=== PATIENT | female | born 1970 | race Caucasian/White ===

== ENCOUNTER 2019-05-23 22:37 | Emergency (ER) | payer OTHER ==
[2019-05-23] MEDS ORDERED: Ondansetron 4 MG/2 ML SDV IVPUSH ONE (23:50)
--- NOTE | 2019-05-23 23:57 | EDM.PDOC ---
ED HPI GENERAL MEDICAL PROBLEM - General Chief Complaint: Abdominal Pain Stated Complaint: VOMITING/ABDOMINAL PAIN/UTIS Time Seen by Provider: 05/23/19 22:38 Source of Information: Reports: Patient History Limitations: Reports: No Limitations - History of Present Illness INITIAL COMMENTS - FREE TEXT/NARRATIVE: Is a 48-year-old female. She was seen at the walk-in clinic last week and diagnosed with urinary tract infection. She was therefore severe lower abdominal pain was found to have a 3.9 cm ovarian cyst on the right but her appendix was normal by CT scan. She's been on nitrofurantoin and finish the course on Sunday. Around 3 AM this morning sudden onset of severe lower abdominal pain going to both sides of her back. She's had no fever and chills. The pain is gotten worse and she comes to the ER. On the way to the ER she vomited 3 before arriving to the ER. She denies any symptoms of urinary tract infection since she stopped the antibiotics. She has had a mild cough but no significant congestion no wheezing. 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 Denies: Shortness of Breath, Wheezing Cardiovascular: Reports: No Symptoms Endocrine: Reports: No Symptoms GI/Abdominal: Reports: Abdominal Pain, Nausea, Vomiting. Denies: Constipation, Diarrhea : Denies: Dysuria, Frequency, Urgency Musculoskeletal: Reports: No Symptoms Skin: Reports: No Symptoms Neurological: Reports: No Symptoms Psychiatric: Reports: No Symptoms Hematologic/Lymphatic: Reports: No Symptoms ED EXAM, GI/ABD - Physical Exam Exam: See Below Exam Limited By: No Limitations General Appearance: Alert, WD/WN, No Apparent Distress Eyes: Bilateral: Normal Appearance Ears: Normal External Exam Nose: Normal Inspection Throat/Mouth: Normal Lips, Normal Voice, No Airway Compromise Head: Normocephalic Neck: Supple Respiratory/Chest: No Respiratory Distress, Lungs Clear, Normal Breath Sounds Cardiovascular: Regular Rate, Rhythm, No Murmur GI/Abdominal Exam: Soft, Other (She has lower abdominal tenderness on both sides and midline, there is no rebound however and no peritoneal signs noted) Back Exam: Full Range of Motion Extremities: Normal Inspection, Normal Range of Motion Neurological: Alert, Oriented Psychiatric: Normal Affect, Normal Mood Skin Exam: Warm, Dry Course - Vital Signs Last Recorded V/S: Last Vital Signs Temp 96.6 F 05/23/19 22:52 Pulse 63 05/23/19 22:52 Resp 20 05/23/19 22:52 BP 147/88 H 05/23/19 22:52 Pulse Ox 99 05/23/19 22:52 - Orders/Labs/Meds Orders: Active Orders 24 hr Category Date Time Status CULTURE BLOOD [BC] Stat Lab 05/24/19 00:34 Received CULTURE BLOOD [BC] Stat Lab 05/24/19 00:41 Received CULTURE URINE [RM] Stat Lab 05/24/19 01:25 Ordered Sodium Chloride 0.9% [Normal Saline] 1,000 ml Med 05/23/19 23:45 Active IV ASDIRECTED Blood Culture x2 Reflex Set [OM.PC] Stat Oth 05/24/19 00:15 Ordered Medication Orders Sodium Chloride (Normal Saline) 1,000 mls @ 1,000 mls/hr IV ASDIRECTED ALICE Last Admin: 05/24/19 01:48 Dose: 1,000 mls/hr Infusion: 05/24/19 01:28 Dose: 1,000 mls/hr Admin: 05/24/19 00:28 Dose: 1,000 mls/hr Labs: Laboratory Tests 05/23/19 05/24/19 05/24/19 Range/Units 23:04 00:34 00:34 WBC 11.30 H (3.98-10.04) K/mm3 RBC 4.47 (3.98-5.22) M/mm3 Hgb 11.8 (11.2-15.7) gm/dl Hct 37.2 (34.1-44.9) % MCV 83.2 (79.4-94.8) fl MCH 26.4 (25.6-32.2) pg MCHC 31.7 L (32.2-35.5) g/dl RDW Std Deviation 44.9 (36.4-46.3) fL Plt Count 416 H (182-369) K/mm3 MPV 9.5 (9.4-12.3) fl Neut % (Auto) 80.0 H (34.0-71.1) % Lymph % (Auto) 14.6 L (19.3-51.7) % [place] % (Auto) 4.6 L (4.7-12.5) % Eos % (Auto) 0.4 L (0.7-5.8) Baso % (Auto) 0.2 (0.1-1.2) % Neut # (Auto) 9.04 H (1.56-6.13) K/mm3 Lymph # (Auto) 1.65 (1.18-3.74) K/mm3 [place] # (Auto) 0.52 H (0.24-0.36) K/mm3 Eos # (Auto) 0.05 (0.04-0.36) K/mm3 Baso # (Auto) 0.02 (0.01-0.08) K/mm3 Manual Slide Review Abnormal smear Sodium 137 (136-145) mEq/L Potassium 3.7 (3.5-5.1) mEq/L Chloride 104 (98-107) mEq/L Carbon Dioxide 23 (21-32) mEq/L Anion Gap 13.7 (5-15) BUN 14 (7-18) mg/dL Creatinine 0.8 (0.55-1.02) mg/dL Est Cr Clr Drug Dosing 75.07 mL/min Estimated GFR (MDRD) > 60 (>60) mL/min BUN/Creatinine Ratio 17.5 (14-18) Glucose 132 H (74-106) mg/dL Calcium 9.2 (8.5-10.1) mg/dL Total Bilirubin 0.5 (0.2-1.0) mg/dL AST 16 (15-37) U/L ALT 35 (14-59) U/L Alkaline Phosphatase 54 (46-116) U/L Total Protein 7.9 (6.4-8.2) g/dl Albumin 3.9 (3.4-5.0) g/dl Globulin 4.0 gm/dL Albumin/Globulin Ratio 1.0 (1-2) Urine Color [place] H (Yellow) Urine Appearance Slt cloudy H (Clear) Urine pH 5.0 (5.0-8.0) Ur Specific [place] > or = 1.030 (1.005-1.030) Urine Protein 2+ H (Negative) Urine Glucose (UA) Trace H (Negative) Urine Ketones 1+ H (Negative) Urine Occult Blood Trace-intact H (Negative) Urine Nitrite Positive H (Negative) Urine Bilirubin 1+ H (Negative) Urine Urobilinogen 4.0 H (0.2-1.0) Ur Leukocyte Esterase 3+ H (Negative) Urine RBC 5-10 H (0-5) /hpf Urine WBC 10-20 H (0-5) /hpf Urine WBC Clumps Rare (NOT SEEN) /hpf Ur Squamous Epith Cells 5-10 H (0-5) /hpf Urine Bacteria Many H (FEW) /hpf Hyaline Casts 0-5 (0-5) /lpf Urine Mucus Many H (FEW) /hpf Meds: Medications Generic Name Dose Route Start Last Admin Trade Name Freanalisa PRN Reason Stop Dose Admin Sodium Chloride 1,000 mls @ 1,000 mls/hr 05/23/19 23:45 05/24/19 01:48 Normal Saline IV 1,000 mls/hr ASDIRECTED ALICE Administration Discontinued Medications Generic Name Dose Route Start Last Admin Trade Name Freq PRN Reason Stop Dose Admin Hydromorphone HCl 0.5 mg 05/24/19 00:23 05/24/19 00:28 Dilaudid IVPUSH 05/24/19 00:24 0.5 mg ONETIME ONE Administration Ceftriaxone Sodium 2 gm/ 100 mls @ 200 mls/hr 05/24/19 01:41 05/24/19 01:48 Sodium Chloride IV 05/24/19 02:10 200 mls/hr ONETIME ONE Administration Ondansetron HCl 4 mg 05/23/19 23:50 05/24/19 00:28 Zofran IVPUSH 05/23/19 23:51 4 mg ONETIME ONE Administration - Re-Assessments/Exams Free Text/Narrative Re-Assessment/Exam: 05/24/19 00:41 Patient's urinalysis shows many bacteria 3+ leukocyte esterase positive nitrites 5-10 RBCs and 10-20 WBCs with a specific gravity of greater than 1.030. Spoke to the patient regarding her urinalysis and that she still has a urinary tract infection despite being on antibiotics and stopping them on Sunday. We will do a urine culture so we can determine what it is sensitive to. 05/24/19 01:24 Spoke to the patient regarding her test results. 05/24/19 01:32 The first antibiotic she was on was ciprofloxacin and the second antibiotic she was on was on nitrofurantoin. The fact she continues to have a UTI where going to culture the urine to make certainly get her on the correct antibiotic. 05/24/19 03:25 The patient is feeling better though she still has some soreness in her lower abdomen which I believe are bladder cramps. We did get a urine culture on her to be certain we are going to treat her infection appropriately since she's been on 2 antibiotics for this and she still has the infection. I will call her tomorrow around noon to make sure she continues to do well. Departure - Departure Time of Disposition: 03:26 Disposition: Home, Self-Care 01 Condition: Good Clinical Impression: Bladder spasms, Lower abdominal pain Urinary tract infection Qualifiers: Urinary tract infection type: acute cystitis Hematuria presence: without hematuria Qualified Code(s): N30.00 - Acute cystitis without hematuria - Discharge Information *PRESCRIPTION DRUG MONITORING PROGRAM REVIEWED*: Not Applicable *COPY OF PRESCRIPTION DRUG MONITORING REPORT IN PATIENT YOGESH: Not Applicable Prescriptions: Cephalexin [Keflex] 500 mg PO TID #21 capsule Oxybutynin [Oxybutynin ER] 10 mg PO DAILY #5 tab.er Instructions: Urinary Tract Infection, Adult Referrals: Chayito Charlton MD [Primary Care Provider] - Forms: ED Department Discharge Additional Instructions: Get the antibiotics filled tomorrow and start taking them, take the medications needed for bladder spasms, if you develop a fever take Tylenol or ibuprofen to control it, drink lots of water and avoid sodas and coffee, I will call you tomorrow around 12:30 to make sure you're still doing well, we did do a urine culture and we will check to make certain you're on the correct antibiotics and I will call you regarding the cultures, return to the ER if your symptoms worsen , follow up with your family provider next week for recheck - My Orders Last 24 Hours: My Active Orders 05/23/19 23:45 Sodium Chloride 0.9% [Normal Saline] 1,000 ml IV ASDIRECTED 05/24/19 00:15 Blood Culture x2 Reflex Set [OM.PC] Stat 05/24/19 00:34 CULTURE BLOOD [BC] Stat 05/24/19 00:41 CULTURE BLOOD [BC] Stat 05/24/19 01:25 CULTURE URINE [RM] Stat - Assessment/Plan Last 24 Hours: My Active Orders 05/23/19 23:45 Sodium Chloride 0.9% [Normal Saline] 1,000 ml IV ASDIRECTED 05/24/19 00:15 Blood Culture x2 Reflex Set [OM.PC] Stat 05/24/19 00:34 CULTURE BLOOD [BC] Stat 05/24/19 00:41 CULTURE BLOOD [BC] Stat 05/24/19 01:25 CULTURE URINE [RM] Stat
[2019-05-24] MEDS ORDERED: HYDROmorphone 0.5 MG/0.5 ML Syringe IVPUSH ONE ×2 (00:23→03:30)
[2019-05-24] MEDS: Sodium Chloride 0.9% 1,000 ML IV SCH ×2 (00:28→01:48)
[2019-05-24] MEDS ORDERED: cefTRIAXone 2 GM in Sodium Chloride 0.9% 100 ML IV ONE ×2 (01:31→01:41)
== END 2019-05-24 03:54 | disposition home or self-care (01) ==
LOC: JD.ED 22:37
DX: N30.00 Acute cystitis without hematuria (principal); N32.89 Other specified disorders of bladder; E03.9 Hypothyroidism, unspecified; Z79.899 Other long term (current) drug therapy
CPT/HCPCS: 36415; 80053; 81001; 85025; 87040; 87086; 87088; 87186; 96361; 96365; 96375; 96376; 99284; J0696; J1170; J2405; J7030; J7050